=== PATIENT | female | born 1975 | race Caucasian/White ===

== ENCOUNTER 2020-06-25 14:00 | Outpatient (RCR) | payer OTHER, SELFPAY | END 2020-06-26 23:55 | disposition home or self-care (01) | LOC: HO.PAOS 14:00 | PROVIDERS: Visit Provider Counselor Mental Health | DX: F41.1 Generalized anxiety disorder (principal); F33.2 Major depressive disorder, recurrent severe without psychotic features; F60.9 Personality disorder, unspecified; Z63.4 Disappearance and death of family member | CPT/HCPCS: 90834 ==

== ENCOUNTER 2020-07-28 12:55 | Outpatient (REF) | payer OTHER, SELFPAY ==
[2020-07-28 14:15] LABS: Basophils Absolute Auto 0.1 X10*3/uL (0.0-0.2); Basophils Percent Auto 0.8 % (0-2); Eosinophils Absolute Auto 0.1 X10*3/uL (0.0-0.4); Eosinophils Percent Auto 1.9 % (0-4); Hematocrit 43.2 % (37-47); Hemoglobin 14.3 g/dl (12.0-16.0); Imm Gran Abs Auto 0.02 X10*3/uL (0.00-0.03); Imm Gran Pct Auto 0.3 % (0.0-0.4); Lymphocytes Absolute Auto 2.4 X10*3/uL (1.2-4.9); Lymphocytes Percent Auto 32.3 % (20-40); MANUAL DIFF FLAG NO; Mean Corpuscular HGB Conc 33.1 g/dl (31.0-35.0); Mean Corpuscular Hemoglobin 29.9 pg (27.0-33.0); Mean Corpuscular Volume 90.2 fL (80-98); Mean Platelet Volume 10.8 fL (9.4-12.3); Monocytes Absolute Auto 0.4 X10*3/uL (0.1-1.2); Monocytes Percent Auto 5.4 % (2-11); Neutrophils Absolute Auto 4.4 X10*3/uL (2.0-8.3); Neutrophils Percent Auto 59.3 % (45-73); Platelet Count 246 X10*3/uL (160-400); Red Blood Count 4.79 X10*6/uL (4.20-5.50); Red Cell Distribution Width 12.9 % (11.0-16.0); White Blood Count 7.5 X10*3/uL (4.8-10.8)
[2020-07-28 14:39] LABS: Estimated Average Glucose 100 mg/dL; Hemoglobin A1c % 5.1 %
[2020-07-28 14:51] LABS: Magnesium 2.2 mg/dL (1.6-2.6)
[2020-07-28 14:57] LABS: Alanine Aminotransferase 17 U/L (0-31); Albumin Level 4.3 g/dL (3.5-5.0); Alkaline Phosphatase 77 U/L (39-117); Anion Gap 12 (12-20); Aspartate Amino Transferase 18 U/L (5-31); Bilirubin Total 0.4 mg/dL (0.0-1.0); Blood Urea Nitrogen 7 mg/dL (9-16); Calcium 8.9 mg/dL (8.4-10.2); Carbon Dioxide 24 mmol/L (22-29); Chloride 107 mmol/L (96-108); Cholesterol 159 mg/dL; Estimated Glomerular Filt Rate > 60; Glucose Random 88 mg/dL (60-115); HDL Cholesterol 41 mg/dL; LDL Cholesterol Calculated 92 mg/dl; Potassium 4.1 mmol/l (3.3-5.1); Sodium 139 mmol/L (135-145); Total Protein 7.3 g/dL (6.5-8.0); Triglycerides 131 mg/dL
[2020-07-28 15:11] LABS: Ferritin 146 ng/mL (10-250); Free T4 (Free Thyroxine) 0.97 ng/dL (0.71-1.85); Thyroid Stimulating Hormone 2.81 uIU/mL (0.32-4.0)
[2020-07-28 15:37] LABS: Folate > 20.0 ng/mL (> or = 4.0); Vitamin B12 > 2000 pg/mL (200-900)
[2020-07-28 18:20] LABS: Lithium 0.45 mmol/L (0.60-1.20)
== END 2020-07-28 12:56 | disposition home or self-care (01) ==
LOC: HO.LAB 12:55
PROVIDERS: PCP Internal Medicine; Visit Provider Clinical Nurse Specialist Psychiatric/Mental Health, Adult
DX: F33.2 Major depressive disorder, recurrent severe without psychotic features (principal)
CPT/HCPCS: 36415; 80053; 80061; 80178; 82306; 82607; 82728; 82746; 83036; 83735; 84439; 84443; 85025

== ENCOUNTER 2021-02-17 11:13 | Outpatient (REF) | payer MEDICARE, MEDICAID, SELFPAY ==
[2021-02-17 12:16] LABS: MANUAL DIFF FLAG NO
[2021-02-17 12:22] LABS: Basophils Absolute Auto 0.1 X10*3/uL (0.0-0.2); Basophils Percent Auto 0.7 % (0-2); Eosinophils Absolute Auto 0.1 X10*3/uL (0.0-0.4); Eosinophils Percent Auto 1.3 % (0-4); Hematocrit 43.4 % (37-47); Hemoglobin 14.2 g/dl (12.0-16.0); Imm Gran Abs Auto 0.02 X10*3/uL (0.00-0.03); Imm Gran Pct Auto 0.2 % (0.0-0.4); Lymphocytes Absolute Auto 2.4 X10*3/uL (1.2-4.9); Lymphocytes Percent Auto 28.9 % (20-40); Mean Corpuscular HGB Conc 32.7 g/dl (31.0-35.0); Mean Corpuscular Hemoglobin 29.2 pg (27.0-33.0); Mean Corpuscular Volume 89.1 fL (80-98); Mean Platelet Volume 10.5 fL (9.4-12.3); Monocytes Absolute Auto 0.5 X10*3/uL (0.1-1.2); Monocytes Percent Auto 6.5 % (2-11); Neutrophils Absolute Auto 5.2 X10*3/uL (2.0-8.3); Neutrophils Percent Auto 62.4 % (45-73); Platelet Count 297 X10*3/uL (160-400); Red Blood Count 4.87 X10*6/uL (4.20-5.50); Red Cell Distribution Width 13.2 % (11.0-16.0); White Blood Count 8.3 X10*3/uL (4.8-10.8)
[2021-02-17 12:31] LABS: Lithium 0.55 mmol/L (0.60-1.20)
[2021-02-17 12:36] LABS: Estimated Average Glucose 100 mg/dL; Hemoglobin A1c % 5.1 %
[2021-02-17 12:39] LABS: Anion Gap 11 (12-20); Blood Urea Nitrogen 9 mg/dL (9-16); Carbon Dioxide 24 mmol/L (22-29); Chloride 107 mmol/L (96-108); Cholesterol 151 mg/dL; Estimated Glomerular Filt Rate 51; Glucose Fasting 106 mg/dL (60-99); HDL Cholesterol 34 mg/dL; LDL Cholesterol Calculated 91 mg/dl; Potassium 4.2 mmol/L (3.3-5.1); Sodium 138 mmol/L (135-145); Triglycerides 130 mg/dL
[2021-02-17 13:01] LABS: Thyroid Stimulating Hormone 1.29 uIU/mL (0.32-4.0)
[2021-02-19 11:37] LABS: Calcium, Ionized 5.1 mg/dL (4.8-5.6)
== END 2021-02-17 11:14 | disposition home or self-care (01) ==
LOC: HO.LAB 11:13
PROVIDERS: Visit Provider Clinical Nurse Specialist Psychiatric/Mental Health, Child & Adolescent
DX: R79.89 Other specified abnormal findings of blood chemistry (principal); F60.3 Borderline personality disorder; Z79.899 Other long term (current) drug therapy
CPT/HCPCS: 36415; 80048; 80061; 80178; 82330; 83036; 84443; 85025

== ENCOUNTER 2025-02-16 14:59 | Inpatient (IN) | payer MEDICARE, MEDICAID, SELFPAY ==
--- NOTE | 2025-02-16 | ECG_ITS ---
Test Reason : DRUG OD PROTOCOL Blood Pressure : */* mmHG Vent. Rate : 91 BPM Atrial Rate : 91 BPM P-R Int : 182 ms QRS Dur : 78 ms QT Int : 382 ms P-R-T Axes : 59 35 48 degrees QTcB Int : 469 ms Normal sinus rhythm Normal ECG When compared with ECG of 16-Feb-2025 19:50, Nonspecific T wave abnormality, improved in Anterolateral leads Referred By: Mara Calderón Electronically Signed By: JYOTI ARECHIGA MD
--- NOTE | ~2025-02-16 | XR_ITS ---
CLINICAL HISTORY: found down, aspiration 1 view chest x-ray Comparison: None provided Findings: No consolidation or effusion. Normal size heart. Postoperative changes of the cervical spine IMPRESSION: 1. No acute findings. This document has been electronically signed by: Juan M Ordonez DO on 02/16/2025 21:41:15
[2025-02-16 15:08] VITALS: BP 105/76; BP 112/63; PULSE 94; PULSE 98; RESP 11; O2SAT 100; O2SAT 99; BMI 24.2
--- NOTE | 2025-02-16 15:25 | ECG_ITS ---
Test Reason : OD Blood Pressure : */* mmHG Vent. Rate : 94 BPM Atrial Rate : 94 BPM P-R Int : 188 ms QRS Dur : 80 ms QT Int : 382 ms P-R-T Axes : 62 49 49 degrees QTcB Int : 477 ms Normal sinus rhythm Nonspecific T wave abnormality Prolonged QT Abnormal ECG When compared with ECG of 29-Jun-2018 15:03, QT has lengthened Referred By: Mara Calderón Electronically Signed By: JYOTI ARECHIGA MD
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
[2025-02-16 15:58] LABS: Hematocrit 32.8 % (37.0-47.0); Hemoglobin 11.1 g/dl (12.0-16.0); Imm Gran Abs Auto 0.04 X10*3/uL (0.00-0.03); Imm Gran Pct Auto 0.4 % (0.0-0.4); Lymphocytes Absolute Auto 0.7 X10*3/uL (1.2-4.9); MANUAL DIFF FLAG NO; Mean Corpuscular HGB Conc 33.8 g/dl (31.0-35.0); Mean Corpuscular Hemoglobin 30.2 pg (27.0-33.0); Mean Corpuscular Volume 89.4 fL (80.0-98.0); NRBC Abs Auto 0.000 X10*3/uL (0.0-0.012); NRBC Pct Auto 0.0 /100WBC (0.0-0.2); Platelet Count 206 X10*3/uL (160-400); Red Blood Count 3.67 X10*6/uL (4.20-5.50); White Blood Count 10.3 X10*3/uL (4.8-10.8)
[2025-02-16 16:00] VITALS: BP 125/78; PULSE 98; RESP 10; TEMP 36.9; O2SAT 99
[2025-02-16 16:02] LABS: VBG HCO3 23 mmol/L (22-26); VBG O2 % Saturation 91.0 %
[2025-02-16 16:04] LABS: Venous Blood Gas Refer to POC result
[2025-02-16 16:12] LABS: Alanine Aminotransferase 13 U/L (0-31); Albumin Level 3.4 g/dL (3.5-5.0); Alkaline Phosphatase 53 U/L (39-117); Anion Gap 11 (12-20); Aspartate Amino Transferase 20 U/L (5-31); Blood Urea Nitrogen 8 mg/dL (9-16); Calcium 8.3 mg/dL (8.4-10.2); Carbon Dioxide 23 mmol/L (22-29); Chloride 111 mmol/L (96-108); Creatinine Clr Calc Pharmacy 54.6; Estimated Glomerular Filt Rate 50; Magnesium 1.9 mg/dL (1.6-2.6); Potassium 3.7 mmol/L (3.3-5.1); Sodium 141 mmol/L (135-145); Total Protein 6.0 g/dL (6.5-8.0)
[2025-02-16 16:16] LABS: Acetaminophen LAB < 3 mcg/mL (<30); Salicylate < 5.0 mg/dL (15-30)
[2025-02-16 16:20] LABS: Troponin-I High Sensitivity < 2.7 ng/L (<3.5-17.0)
[2025-02-16 17:00] VITALS: BP 113/76; PULSE 104; RESP 12; O2SAT 100
--- NOTE | 2025-02-16 17:40 | ECG_ITS ---
Test Reason : SERIAL EKG FOR OD Blood Pressure : */* mmHG Vent. Rate : 103 BPM Atrial Rate : 103 BPM P-R Int : 178 ms QRS Dur : 80 ms QT Int : 340 ms P-R-T Axes : 60 45 46 degrees QTcB Int : 445 ms Sinus tachycardia Nonspecific T wave abnormality Abnormal ECG When compared with ECG of 16-Feb-2025 15:37, No significant change was found Referred By: Mara Calderón Electronically Signed By: JYTOI ARECHIGA MD
[2025-02-16 17:49] LABS: Glucose, Whole Blood 82 mg/dL (60-115)
[2025-02-16] MEDS: Potassium Chloride/H20 10 MEQ/100 ML PIGGYBACK 100 MEQ IV ×4 (18:16→23:34)
[2025-02-16 19:00] VITALS: BP 111/77; PULSE 99; RESP 13; O2SAT 100
--- NOTE | 2025-02-16 19:44 | ECG_ITS ---
Test Reason : serial EKG for OD Blood Pressure : */* mmHG Vent. Rate : 93 BPM Atrial Rate : 93 BPM P-R Int : 190 ms QRS Dur : 72 ms QT Int : 344 ms P-R-T Axes : 63 34 0 degrees QTcB Int : 427 ms Normal sinus rhythm Nonspecific T wave abnormality Abnormal ECG When compared with ECG of 16-Feb-2025 17:48, No significant change was found Referred By: Mara Calderón Electronically Signed By: JYOTI ARECHIGA MD
[2025-02-16 20:46] VITALS: BP 111/76; PULSE 99; RESP 10; O2SAT 100
[2025-02-16 20:49] LABS: Lithium 0.62 mmol/L (0.60-1.20)
[2025-02-16 20:55] LABS: Cannabinoid Screen Urine POSITIVE (Not Detect)
[2025-02-16 22:12] VITALS: BP 111/73; PULSE 104; RESP 14; O2SAT 94
--- NOTE | 2025-02-16 23:35 | PC.NURSE ---
assumed care of pt @2300, pt A+Ox3, pt third bag of K completed and 4th bag hung at this time, EKG being performed by tech, pt appeared to be agitated but easily redirectable and able to follow commands
[2025-02-16 23:45] LABS: Glucose, Whole Blood 71 mg/dL (60-115)
--- NOTE | 2025-02-16 23:46 | PC.NURSE ---
lithium blood work drawn and sent to lab at this time
[2025-02-16 23:58] LABS: Lithium 0.56 mmol/L (0.60-1.20)
--- NOTE | 2025-02-17 00:39 | PC.NURSE ---
4th bag of K infused at this time. pt restless in bed, redirectable, responsive to verbal stimuli
[2025-02-17 00:40] VITALS: BP 122/83; PULSE 87; RESP 14; TEMP 36.6; O2SAT 100
[2025-02-17 02:14] VITALS: BP 124/72; PULSE 93; RESP 12; O2SAT 99
--- NOTE | 2025-02-17 03:19 | PC.NURSE ---
pt increasigly agitated, sitter attempting to redirect the pt and pt uncooperative, RN and provider Urmila Cedillo at the bedside attempting to redirect the pt, pt states she needs to use the bathroom, pt walked to the bathroom via x2 assist by RN and deburring technician
--- NOTE | 2025-02-17 03:36 | PC.NURSE ---
pt returned to room and laying in stretcher, sitter at the bedside, no apparent distress or agitation at this time.
[2025-02-17 04:56] VITALS: BP 131/64; PULSE 85; RESP 15; TEMP 36.6; O2SAT 100
--- NOTE | 2025-02-17 05:29 | PC.NURSE ---
at this time this RN spoke with Ro from poison control, updating on the pt.
[2025-02-17 06:29] VITALS: BP 111/76; PULSE 87; RESP 17; TEMP 36.3; O2SAT 100
--- NOTE | 2025-02-17 07:58 | PC.NURSE ---
Pt walked to the [facility] with BLANCO munson and jayant
[2025-02-17 08:00] VITALS: BP 109/68; PULSE 90; RESP 22; O2SAT 99
--- NOTE | 2025-02-17 13:28 | MHC.EDTECH ---
Patient moved from [facility] to [facility] chairs [facility] - patient upset at this tech stating he will call his soft crab shedder and meri you, and that his insurance paid for that room. This tech apologized for the inconvenience. Patient resting in chairs at [facility].
[2025-02-17 18:29] VITALS: BP 114/82; PULSE 92; RESP 18; TEMP 36.6; O2SAT 100
[2025-02-18 06:27] VITALS: BP 115/79; PULSE 100; RESP 18; TEMP 36.8; O2SAT 100
--- NOTE | 2025-02-18 09:57 | PC.NURSE ---
Pt up oob ambulating with steady gait. Using phone- pt agitated/irritable stating I want to leave I am in dirty clothes, I haven't even showered. Pt redirected on ability to shower and offered supplies/clean linens- pt refused. rodriguez aware of pt increasing agitation. Med rec done by this RN, confirmed with pharmacy. Home meds ordered- pending verification by pharmacy. All needs met at this time.
--- NOTE | 2025-02-18 11:52 | PHA.MEDREC ---
Addendum entered by Don Obrien, Julian 02/18/25 12:07: reviewed Original Note: Pharmacy Consult ? Medication Reconciliation Pharmacy reviewed med rec done by nursing. Spoke with pt and per pt she takes: the Emsam patches once daily and states she had one on no but has not changed it in about 1 week, Levothyroxine 100mcg once daily (nurse had confirmed 88mcg), Quetiapine 200mg tabs; pt now stating she takes it 1 1/2 tab (300mg) at bedtime, a Vitamin B Complex tab with no Vitamin C/Folic acid added; pt stated the Vitamin C makes her pee too much (nurse had confirmed the Vitamin B Complex W/H Vitamin/Folic acid). Pt states she thinks she last took her medications morning but is not 100% sure at this time.
--- NOTE | 2025-02-18 12:20 | PC.NURSE ---
Per pt- ok to give Signficant other Onofre and Mom information over phone.
[2025-02-18 17:57] VITALS: BP 121/78; PULSE 83; RESP 18; TEMP 36.7; O2SAT 99
[2025-02-18 17:58] VITALS: BMI 19.5
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
[2025-02-18] MEDS: Magnesium Hydrox/Alum Hydrox 30 ML ORAL.SUSP PO (19:02)
--- NOTE | 2025-02-19 06:05 | HO.PSYADMNOT ---
HPI Date of Service: 02/19/25 Chief Complaint: Depressed/SI Sources of Information: patient interviewed, chart reviewed and crisis/core team assessment reviewed Additional Sources of Information: Seen 1030am HPI Subjective Notes: Lin Warning, Conditional Voluntary and 3 Day Healthcare Proxy: No Guardianship: No Medical Problems Affecting Mental Status: No Narrative: 49 yo female, history of bipolar disorder, PTSD, substance use to ER 02/16 via EMS. Mother called 911 due to suspected OD of klonopin. She arrived heavily intoxicated. Toxicology positive for cocaine, benzodiazepines, cannabis. [place] level was low. Family report to CARE team pt was stable until approx 1 year ago when she became obsessed with her appearance. She lost over 100 lbs and began running for exercise. 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 Mother also reports pt has been overtaking Klonopin. Pt admits to overtaking klonopin in the ER, however today she reports what she took was Seroquel. In meeting with pt on 02/18 and today, she reports discord with partner of several years (they have been dating since she was age 10). After her weight loss she reports getting attention from men as she never had before and having a brief relationship with a community resource officer. Former partner has been volitile about this-precipitating threats, arguments and a restraining order from pt and her new dating interest. Recently the new relationship ended and former partner and pt reconciled-he offered to find her a plaster machine operator to have a relationship with, however he could not manage this and both were argumentative again, having volitile arguments. They recently went to the [facility] in [place] where pt did use cocaine x 1 and the arguments continued. Pt reports she took extra meds to rest, she believes she took #20 200 mg Seroquel, however, had minimal reaction so she is unsure. I don't want to , I am having enjoyment in life like I have never had for the first time. Past Psychiatric History: [place] [facility] in her 20's, most recent IP [facility] 2021 s/p OD OP: Arabella Hernandes Psychiatrist: Dr. Mendoza [phone] Hx of anorexia Hx ECT, TMS, Ketamine Mental health hx and sx since her 20's, severe anxiety in childhood in relation to attending school History of impulsive behaviors, multiple overdoses Medical Evaluation Reviewed: Yes [facility] Medical History (Updated 02/19/25 @ 18:37 by Idania Escobar APRN) PTSD (post-traumatic stress disorder) Cocaine abuse Bipolar disorder Family History: Denies Social History: Born in [place], raised in [place] by both parents. She is an only child. She graduated high school and attended college. for 11 years, , no children. Currently on SSDI Substance History: cannabis daily, edibles daily cocaine x 1 recently at the [facility] Trauma History: no, however, pt's father a difficult when covid first started and she observed this. Their relationship was close but difficult. Diagnostics Vital Signs (24Hr): Vital Signs - 24 hr 02/18/25 06:27 02/18/25 17:57 Temperature 98.2 F 98.1 F Pulse Rate 100 83 Respiratory Rate 18 18 Blood Pressure 115/79 121/78 Pulse Oximetry 100 99 Oxygen Delivery Method Room Air Room Air BMI result Body Mass Index 19.5 Labs 02/19/25 07:46 02/19/25 07:46 Labs: FT4 0.59 (0.71-1.85) TSH 5.05 (0.32-4) Li 0.56 Meds/Allergies Meds Home Medications ?Medication ?Instructions ?Recorded ?Confirmed ?Type omeprazole 40 mg capsule,delayed 1 cap PO DAILY@0630 1030/20 02/18/25 History release docusate sodium 100 mg capsule 100 mg PO BID PRN Constipation 02/18/25 02/18/25 History levothyroxine 100 mcg tablet 100 mcg PO DAILY@0600 02/18/25 02/18/25 History linaclotide 290 mcg capsule 290 mcg PO DAILY 02/18/25 02/18/25 History (Linzess) polyethylene glycol 3350 17 34 g PO DAILY PRN Constipation 02/18/25 02/18/25 History gram/dose oral powder (Miralax) quetiapine 200 mg tablet 300 mg PO BEDTIME 02/18/25 02/18/25 History vitamin B complex 1 cap PO DAILY 02/18/25 02/18/25 History Allergies Allergies Allergy/AdvReac Type Severity Reaction Status Date / Time No Known Allergies (No Known Allergy Unverified 02/16/25 15:13 Allergies*) Mental Status Exam Mental Status Exam Patient Appearance: Appropriate Patient Orientation: Person, Place, Time and Situation Level of Consciousness: Alert Patient Behavior: Talkative Mood Description: Apprehensive Affect Description: Apprehensive Patient Cognition Impaired: No Ability to Follow Directions: Good Speech Pattern: Spontaneous Speech Memory Description: Episodic Impaired Hallucinations: None Delusions: Not Present Thought Process: Distracted Thought Content: positive for Circumstantial and positive for Perseveration Depressive Symptoms: Thoughts of /Suicide (denies) Judgement: Fair Assessment & Plan Assessment & Plan (1) Bipolar disorder: Status: Acute Code(s): F31.9 - Bipolar disorder, unspecified (2) Cocaine abuse: Status: Acute Code(s): F14.10 - Cocaine abuse, uncomplicated (3) PTSD (post-traumatic stress disorder): Status: Acute Code(s): F43.10 - Post-traumatic stress disorder, unspecified Plan Admit, CV, 15 minute checks, TDN signed Re-establish regime Collateral Contact Encourage full milieu Diagnostics as needed Patient educated on: medication risk/benefits and therapeutic strategies Informed Consent: understands Reason for continued inpatient stay Substantial Risk for: rapid decompensation Statement Statement: I have reviewed the history and physical and performed a pertinent examination on my patient. No changes have occurred unless specified. If the History and Physical was not performed prior to admission, the Hospitalist's service will be consulted for completing the admission physical. Time Spent With Patient Time: Total time managing care of this patient today ____ minutes.
[2025-02-19 07:50] VITALS: BP 120/83; PULSE 77; RESP 17; TEMP 36.6; O2SAT 96
[2025-02-19 08:02] LABS: MANUAL DIFF FLAG NO
[2025-02-19 08:04] LABS: Hematocrit 42.2 % (37.0-47.0); Hemoglobin 14.2 g/dl (12.0-16.0); Imm Gran Abs Auto 0.02 X10*3/uL (0.00-0.03); Imm Gran Pct Auto 0.2 % (0.0-0.4); Lymphocytes Absolute Auto 2.0 X10*3/uL (1.2-4.9); Mean Corpuscular HGB Conc 33.6 g/dl (31.0-35.0); Mean Corpuscular Hemoglobin 30.0 pg (27.0-33.0); Mean Corpuscular Volume 89.0 fL (80.0-98.0); NRBC Abs Auto 0.000 X10*3/uL (0.0-0.012); NRBC Pct Auto 0.0 /100WBC (0.0-0.2); Platelet Count 293 X10*3/uL (160-400); Red Blood Count 4.74 X10*6/uL (4.20-5.50); White Blood Count 8.9 X10*3/uL (4.8-10.8)
[2025-02-19 08:15] LABS: Hemoglobin A1C 111.2734 umol/L; Total Hemoglobin (HGBA1C) 3750.7428 umol/L
[2025-02-19 08:29] LABS: Alanine Aminotransferase 14 U/L (0-31); Albumin Level 4.4 g/dL (3.5-5.0); Alkaline Phosphatase 67 U/L (39-117); Anion Gap 8 (12-20); Aspartate Amino Transferase 22 U/L (5-31); Blood Urea Nitrogen 11 mg/dL (9-16); Calcium 9.2 mg/dL (8.4-10.2); Carbon Dioxide 28 mmol/L (22-29); Chloride 108 mmol/L (96-108); Cholesterol 170 mg/dL (<200); Creatinine Clr Calc Pharmacy 60.4; Estimated Glomerular Filt Rate > 60; HDL Cholesterol 72 mg/dL (>40); Potassium 4.1 mmol/L (3.3-5.1); Sodium 140 mmol/L (135-145); Total Protein 7.7 g/dL (6.5-8.0); Triglycerides 88 mg/dL (<150)
[2025-02-19 10:00] LABS: Free T4 (Free Thyroxine) 0.59 ng/dL (0.71-1.85)
[2025-02-19 20:00] VITALS: BP 131/82; PULSE 86; TEMP 36.8; O2SAT 98
[2025-02-20 08:00] VITALS: BP 99/68; PULSE 84; TEMP 36.1; O2SAT 99
--- NOTE | 2025-02-20 12:36 | HE.PHANOTE ---
RE: PT OWN EMSAM PATCHES Med was filled by [facility] Outpatient pharmacy and director of pharmacy Alexia brought up 30 patches and put in pt specific bin on 02/20/25 @[id number].
[2025-02-20] MEDS: SELEGILINE 6 MG/24 HR 1 EACH TOPICAL ×2 (12:44→12:47)
--- NOTE | 2025-02-20 13:54 | HO.PSYCHPN ---
Subjective Subjective Date of Service: 02/20/25 Reason For Visit: Depressed/SI Subjective Notes: Conditional Voluntary Medical Problems Affecting Mental Status: No Interim History: Patient reports constipation and notes that she has not been able to move her bowels for the past 5 days. Since history of severe constipation and has been on Linzess for the past year but does not want to take the medication here due to severe diarrhea on the medication. She is not taking p.r.n. medications here for constipation. She notes that she has not been hydrating well and has not been ambulating much. She denies anxiety and depression. She denies SI/HI/AH/VH. She is ready for discharge tomorrow. Medication Compliance: Intermittent Side effects from medications: No Attending Groups: Intermittent Review of Systems Acute medical concerns: Yes GI: Reports constipation and severe suprapubic pain Mental Status Exam Mental Status Exam Narrative: Appearance: Casually dressed, adequate hygiene Behavior: Calm and cooperative throughout the interview. Eye contact is appropriate, and there are no signs of psychomotor agitation or retardation Speech: Normal volume and prosody Thought process: Logical and goal-directed Thought content: Future oriented no self-harming thoughts Mood: Euthymic Affect: Full, mood-congruent SI:denies HI:denies VH/AH:none Delusions: None Insight/judgment: Fair insight and judgment Memory/cog: Alert, oriented x 4. grossly intact to conversational testing Diagnostics Vital Signs (24Hr): Vital Signs - 24 hr 02/19/25 20:00 02/20/25 08:00 Temperature 98.3 F 97.0 F Pulse Rate 86 84 Blood Pressure 131/82 99/68 Pulse Oximetry 98 99 Oxygen Delivery Method Room Air Room Air BMI result Body Mass Index 19.5 Labs 02/19/25 07:46 02/19/25 07:46 Labs: Laboratory Results - last 48 hr 02/19/25 07:46 WBC 8.9 RBC 4.74 D Hgb 14.2 D Hct 42.2 D MCV 89.0 MCH 30.0 MCHC 33.6 RDW 13.0 Plt Count 293 D MPV 9.4 Immature Gran % (Auto) 0.2 Neut % (Auto) 68.5 Lymph % (Auto) 22.3 [place] % (Auto) 6.2 Eos % (Auto) 2.1 Baso % (Auto) 0.7 Lymph # (Auto) 2.0 [place] # (Auto) 0.6 Eos # (Auto) 0.2 Baso # (Auto) 0.1 Abs Immat Gran (auto) 0.02 Absolute Neuts (auto) 6.1 Absolute Nucleated RBC 0.000 Nucleated RBC % (auto) 0.0 Sodium 140 Potassium 4.1 Chloride 108 Carbon Dioxide 28 Anion Gap 8 L BUN 11 Creatinine 0.95 Estim Creat Clear Calc 60.4 Estimated GFR > 60 Random Glucose 98 Estimat Average Glucose 94 Hemoglobin A1c % 4.9 Calcium 9.2 D Total Bilirubin 0.3 AST 22 ALT 14 Alkaline Phosphatase 67 Total Protein 7.7 Albumin 4.4 Triglycerides 88 Cholesterol 170 LDL Cholesterol, Calc 81 HDL Cholesterol 72 TSH 5.05 H Free T4 0.59 L Medications Medications Current Medications Acetaminophen (Acetaminophen 325 Mg Tablet) 650 mg PO Q6H PRN PRN Reason: Headache/Pain, Scale 1-10 Al Hydroxide/Mg Hydroxide (Magnesium Hydrox/Alum Hydrox 30 Ml Oral.Susp) 30 ml PO Q6H PRN PRN Reason: Heartburn/Nausea Last Admin: 02/18/25 19:02 Dose: 30 ml Clonazepam (Clonazepam 1 Mg Tablet) 1 mg PO BID [facility] Last Admin: 02/20/25 09:13 Dose: 1 mg Folic Acid (Folic Acid 1 Mg Tablet) 1 mg PO DAILY [facility] Last Admin: 02/20/25 09:10 Dose: 1 mg Hydroxyzine HCl (Hydroxyzine Hcl 25 Mg Tablet) 25 mg PO Q6H PRN PRN Reason: mild anxiety Levothyroxine Sodium (Levothyroxine Sodium 88 Mcg Tablet) 88 mcg PO DAILY [facility] Last Admin: 02/20/25 09:10 Dose: 88 mcg [place] Carbonate ([place] Carbonate Er 300 Mg Tablet.Er) 300 mg PO BID [facility] Last Admin: 02/20/25 09:11 Dose: 300 mg Magnesium Hydroxide (Milk Of Magnesia 30 Ml Oral.Susp) 30 ml PO DAILY PRN PRN Reason: Constipation Multivitamins/Vitamin C (Multivitamin Tablet) 1 tab PO DAILY [facility] Last Admin: 02/20/25 09:10 Dose: 1 tab Nicotine (Nicotine 21 Mg Patch.Td24) 21 mg TRANSDERMA DAILY PRN PRN Reason: smoking cessation Nicotine Polacrilex (Nicotine Polacrilex 2 Mg Gum) 4 mg BUCCAL Q2H PRN PRN Reason: Nicotine Cravings Pt Own (Selegiline [ Emsam] 6 Mg/24 Hr Patch 24 Hour) 1 patch TOPICAL DAILY [facility] Last Admin: 02/20/25 12:47 Dose: 1 patch Olanzapine (Olanzapine 5 Mg Tablet) 5 mg PO TID PRN PRN Reason: agitation Omeprazole (Omeprazole 40 Mg Capsule.) 40 mg PO DAILY [facility] Last Admin: 02/20/25 09:10 Dose: 40 mg Quetiapine Fumarate (Quetiapine Fumarate 300 Mg Tablet) 300 mg PO BEDTIME [facility] Last Admin: 02/19/25 21:07 Dose: 300 mg Allergies Allergies Allergy/AdvReac Type Severity Reaction Status Date / Time No Known Allergies (No Known Allergy Unverified 02/16/25 15:13 Allergies*) Assessment & Plan Assessment & Plan (1) Bipolar disorder: Status: Acute Code(s): F31.9 - Bipolar disorder, unspecified (2) Cocaine abuse: Status: Acute Code(s): F14.10 - Cocaine abuse, uncomplicated (3) PTSD (post-traumatic stress disorder): Status: Acute Code(s): F43.10 - Post-traumatic stress disorder, unspecified Plan Admit, CV, 15 minute checks, TDN signed Re-establish regime Collateral Contact Encourage full milieu Diagnostics as needed 02/20: Patient reports constipation and notes that she has not been able to move her bowels for the past 5 days. Since history of severe constipation and has been on Linzess for the past year but does not want to take the medication here due to severe diarrhea on the medication. She is not taking p.r.n. medications here for constipation. She notes that she has not been hydrating well. She denies anxiety and depression. She denies SI/HI/AH/VH. She is ready for discharge tomorrow. Continue current treatment regimen. Encouraged to take p.r.n. medications for constipation. Adequate hydration infrequent ambulation encouraged to soften stool and promote defecation. DC on 02/21/25. Patient educated on: therapeutic strategies Reason for continued inpatient stay Substantial Risk for: rapid decompensation Time Spent With Patient Time: Total time managing care of this patient today ____ minutes.
[2025-02-20] MEDS: Milk of Magnesia 30 ML ORAL.SUSP PO (14:39)
[2025-02-20 20:00] VITALS: BP 141/81; PULSE 85; RESP 16; TEMP 36.4; O2SAT 99
--- NOTE | 2025-02-21 10:21 | P.PNPSI_ITS ---
Subjective Subjective Reason For Visit: Depressed/SI Diagnostics Vital Signs (24Hr): Vital Signs - 24 hr 02/20/25 20:00 Temperature 97.6 F Pulse Rate 85 Respiratory Rate 16 Blood Pressure 141/81 H Pulse Oximetry 99 Oxygen Delivery Method Room Air BMI result Body Mass Index 19.5 Labs 02/19/25 07:46 02/19/25 07:46 Medications Medications Current Medications Acetaminophen (Acetaminophen 325 Mg Tablet) 650 mg PO Q6H PRN PRN Reason: Headache/Pain, Scale 1-10 Al Hydroxide/Mg Hydroxide (Magnesium Hydrox/Alum Hydrox 30 Ml Oral.Susp) 30 ml PO Q6H PRN PRN Reason: Heartburn/Nausea Last Admin: 02/18/25 19:02 Dose: 30 ml Clonazepam (Clonazepam 1 Mg Tablet) 1 mg PO BID [facility] Last Admin: 02/21/25 08:27 Dose: 1 mg Folic Acid (Folic Acid 1 Mg Tablet) 1 mg PO DAILY [facility] Last Admin: 02/21/25 08:28 Dose: 1 mg Hydroxyzine HCl (Hydroxyzine Hcl 25 Mg Tablet) 25 mg PO Q6H PRN PRN Reason: mild anxiety Levothyroxine Sodium (Levothyroxine Sodium 88 Mcg Tablet) 88 mcg PO DAILY [facility] Last Admin: 02/21/25 08:28 Dose: 88 mcg [place] Carbonate ([place] Carbonate Er 300 Mg Tablet.Er) 300 mg PO BID [facility] Last Admin: 02/21/25 08:27 Dose: 300 mg Magnesium Hydroxide (Milk Of Magnesia 30 Ml Oral.Susp) 30 ml PO DAILY PRN PRN Reason: Constipation Last Admin: 02/20/25 14:39 Dose: 30 ml Multivitamins/Vitamin C (Multivitamin Tablet) 1 tab PO DAILY [facility] Last Admin: 02/21/25 08:28 Dose: 1 tab Nicotine (Nicotine 21 Mg Patch.Td24) 21 mg TRANSDERMA DAILY PRN PRN Reason: smoking cessation Nicotine Polacrilex (Nicotine Polacrilex 2 Mg Gum) 4 mg BUCCAL Q2H PRN PRN Reason: Nicotine Cravings Pt Own (Selegiline [ Emsam] 6 Mg/24 Hr Patch 24 Hour) 1 patch TOPICAL DAILY [facility] Last Admin: 02/21/25 08:29 Dose: Not Given Olanzapine (Olanzapine 5 Mg Tablet) 5 mg PO TID PRN PRN Reason: agitation Omeprazole (Omeprazole 40 Mg Capsule.Dr) 40 mg PO DAILY [facility] Last Admin: 02/21/25 08:27 Dose: 40 mg Quetiapine Fumarate (Quetiapine Fumarate 300 Mg Tablet) 300 mg PO BEDTIME [facility] Last Admin: 02/20/25 21:10 Dose: 300 mg Allergies Allergies Allergy/AdvReac Type Severity Reaction Status Date / Time No Known Allergies (No Known Allergy Unverified 02/16/25 15:13 Allergies*) Assessment & Plan Assessment & Plan (1) Bipolar disorder: Status: Acute Code(s): F31.9 - Bipolar disorder, unspecified (2) Cocaine abuse: Status: Acute Code(s): F14.10 - Cocaine abuse, uncomplicated (3) PTSD (post-traumatic stress disorder): Status: Acute Code(s): F43.10 - Post-traumatic stress disorder, unspecified Plan Admit, CV, 15 minute checks, TDN signed Re-establish regime Collateral Contact Encourage full milieu Diagnostics as needed 02/20: Patient reports constipation and notes that she has not been able to move her bowels for the past 5 days. Since history of severe constipation and has been on Linzess for the past year but does not want to take the medication here due to severe diarrhea on the medication. She is not taking p.r.n. medications here for constipation. She notes that she has not been hydrating well. She denies anxiety and depression. She denies SI/HI/AH/VH. She is ready for discharge tomorrow. Continue current treatment regimen. Encouraged to take p.r.n. medications for constipation. Adequate hydration infrequent ambulation encouraged to soften stool and promote defecation. DC on 02/21/25. Time Spent With Patient Time: Total time managing care of this patient today ____ minutes.
--- NOTE | 2025-03-04 02:00 | PM.PSYDC ---
DS: Providers Provider Date of Service: 02/21/25 Date of admission: 02/18/25 14:51 Date of discharge: 02/21/25 Primary care physician: Unknown Physician Admitting clinician: Idania Escobar Attending physician on admission: Josue Sloan Attending physician on discharge: Josue Sloan Discharging clinician: Idania Escobar DS: Diagnosis Discharge Diagnosis (1) Bipolar disorder: Status: Acute (2) Cocaine abuse: Status: Acute (3) PTSD (post-traumatic stress disorder): Status: Acute DS: Medications Discharge Medications Home Medications: Home Medications ?Medication ?Instructions ?Recorded ?Confirmed docusate sodium 100 mg capsule 100 mg PO BID PRN Constipation 02/18/25 02/18/25 linaclotide 290 mcg capsule 290 mcg PO DAILY 02/18/25 02/18/25 (Linzess) polyethylene glycol 3350 17 34 g PO DAILY PRN Constipation 02/18/25 02/18/25 gram/dose oral powder (Miralax) vitamin B complex 1 cap PO DAILY 02/18/25 02/18/25 Previous Rx's ?Medication ?Instructions ?Recorded clonazepam 1 mg tablet 1 tab PO BID #60 tabs 07/24/20 selegiline 6 mg/24 hr transdermal 1 patch topical DAILY #30 ea 02/19/25 24 hour patch (Emsam) folic acid 1 mg tablet 1 tab PO DAILY #30 tabs 02/21/25 levothyroxine 100 mcg capsule 100 mcg PO DAILY #30 caps 02/21/25 lithium carbonate 300 mg 300 mg PO BID #60 tabs 02/21/25 tablet,extended release multivitamin (Daily-Haley tablet) 1 tab PO DAILY #30 tabs 02/21/25 omeprazole 40 mg capsule,delayed 1 cap PO DAILY@0630 #30 caps 02/21/25 release quetiapine 200 mg tablet 300 mg (1.5 x 200 mg) PO BEDTIME 02/21/25 #30 tabs selegiline 6 mg/24 hr transdermal 1 patch topical DAILY #30 ea 02/21/25 24 hour patch Mental Status Exam Mental Status Exam Patient Appearance: Appropriate Patient Orientation: Person, Place, Time and Situation Level of Consciousness: Alert Patient Behavior: Talkative Mood Description: Apprehensive Affect Description: Apprehensive Patient Cognition Impaired: No Ability to Follow Directions: Good Speech Pattern: Spontaneous Speech Memory Description: Episodic Impaired Hallucinations: None Delusions: Not Present Thought Process: Distracted Thought Content: positive for Circumstantial and positive for Perseveration Depressive Symptoms: Thoughts of /Suicide (denies) Judgement: Fair DS: Summary Hospital Course Hospital Course: Admission to adult psychiatry for exacerbation of Bipolar Disorder, PTSD. Pt with a year long hx of anorexia with over a 100lb weight loss. To ER with EMS s/p intoxication and family concern regarding overdose. Pt reports taking extra klonopin, however, took extra seroquel to help with her sleep which was not a suicide attempt she reports. Toxicology positive for cannabis, benzodiazepines, cocaine. [place] level was low on admission. Pt signed a three day notice upon admit. Medications were evaluated and re-established. Pt was offered full milieu to assist in strengthening coping skills and to assist with management of relationship conflicts. Contact was made with her out patient psychiatrist who will meet with her this week post discharge. Pt was offered ongoing [facility], referral to [facility] for ongoing eating disorder treatment, however she declined these suggestions. She will call/return as needed. Her out pt psychiatrist is aware of these offers as well. Status at Discharge Functional status at discharge: independent ambulation Overall status at discharge: patient is progressing back to baseline Time Spent with Patient Time attestation: Total time managing care of this patient today ____ minutes. Time spent: Less than 30 minutes Discharge Plan Discharge Anticipated Discharge Date/Time: 02/21/25 12:00 Patient Disposition: Home, Self-Care Discharge Diagnosis: PTSD, bipolar disorder, cocaine abuse Referrals: [facility] Psychiatry: Dr. Mendoza [Other] - 02/22/25 9:40 am Referral Note: Hospital discharge appointment in person at [facility]: Arabella Hernandes [Other] - 02/27/25 2:00 pm Referral Note: Hospital discharge appointment Appointment is in person at [facility] in [place], [place]. [facility]: Partial Hospitalization Program [Other] - 1 Week Referral Note: Partial Hospitalization Program Information Patient can self-refer or seek support from outpatient providers to place referral for PHP program. Physician,Unknown J [Primary Care Provider, Medical] - 1 Week Discharge Medications: New multivitamin [Daily-Haley] Tablet 1 tab PO DAILY Qty: 30 0RF selegiline 6 mg/24 hr Patch 24 Hour 1 patch topical DAILY Qty: 30 0RF levothyroxine 100 mcg capsule 100 mcg PO DAILY Qty: 30 0RF Continued clonazepam 1 mg tablet 1 tab PO BID Qty: 60 1RF docusate sodium 100 mg capsule 100 mg PO BID PRN (Reason: Constipation) polyethylene glycol 3350 [Miralax] 17 gram/dose Powder 34 g PO DAILY PRN (Reason: Constipation) vitamin B complex Capsule 1 cap PO DAILY Linzess 290 mcg capsule 290 mcg PO DAILY Emsam 6 mg/24 hr patch 24 hour 1 patch topical DAILY Qty: 30 1RF quetiapine 200 mg tablet 300 mg PO BEDTIME Qty: 30 0RF lithium carbonate 300 mg tablet extended release 300 mg PO BID Qty: 60 0RF omeprazole 40 mg capsule,delayed release(DR/EC) 1 cap PO DAILY@0630 Qty: 30 0RF folic acid 1 mg tablet 1 tab PO DAILY Qty: 30 1RF Discontinued levothyroxine 100 mcg tablet 100 mcg PO DAILY@0600 Discharge Orders: Discharge Order (Routine); Ordered 02/21/25 Ordered By: Que Salazar Diet: Regular diet Activity on Discharge: As tolerated Stand Alone Forms: Patient Portal Discharge page, Community Support Print Language: Guyanese Care Plan Goals: Maintain mood and safe behaviors Take medications as prescribed Continue to pursue sobriety Practice coping skills Continue with outpatient providers and reach out to them as needed Health Concerns: Mood stability and behaviors Sobriety Plan of Treatment: Follow up with your PCP, psychiatric provider and other outpatient providers regarding above concerns Take medications as prescribed Assessment: Risk assessment at time of discharge:? Patient was interviewed prior to discharge and found to be fully oriented and without any SI or HI. Patient has improved insight and judgment and wants to continue treatment. Patient is not in imminent risk of harm to self or others and has a safety plan that includes presenting to the closest ER or calling 911 if feeling unsafe.? Patient has been observed closely by nursing and unit staff throughout admission; patient has not engaged in any behaviors that suggest dangerousness to self or others and has demonstrated appropriate behaviors and impulse control Discharge Date/Time: 02/21/25 11:45
== END 2025-02-21 11:45 | disposition home or self-care (01) | DRG 885 ==
LOC: HO.ED 02-17 13:39 → HO.PM5 02-18 15:22
PROVIDERS: Admitting Provider Psychiatry & Neurology Psychiatry; Emergency Provider Emergency Medicine Emergency Medical Services; Visit Provider Psychiatry & Neurology Psychiatry
DX: F31.9 Bipolar disorder, unspecified (principal); R45.851 Suicidal ideations; F14.10 Cocaine abuse, uncomplicated; K59.00 Constipation, unspecified; F43.10 Post-traumatic stress disorder, unspecified; Z79.890 Hormone replacement therapy; Z79.899 Other long term (current) drug therapy
CPT/HCPCS: 36415; 71045; 80053; 80061; 80143; 80178; 80179; 80307; 82550; 82803; 82947; 83036; 83735; 84439; 84443; 84484; 85025; 93005; 99285; J3480; S9485

== ENCOUNTER → 2025-02-16 15:25 | Outpatient (BNV) | payer MEDICARE, MEDICAID, SELFPAY | PROVIDERS: Emergency Provider Emergency Medicine Emergency Medical Services; Visit Provider Internal Medicine Cardiovascular Disease | DX: R94.31 Abnormal electrocardiogram [ECG] [EKG] (principal); T40.5X1A Poisoning by cocaine, accidental (unintentional), initial encounter; R00.1 Bradycardia, unspecified | CPT/HCPCS: 93010 ==

== ENCOUNTER → 2025-02-16 20:54 | Outpatient (BNV) | payer MEDICARE, MEDICAID, SELFPAY | PROVIDERS: Emergency Provider Emergency Medicine Emergency Medical Services; Visit Provider Family Medicine | DX: R41.0 Disorientation, unspecified (principal) | CPT/HCPCS: 71045 ==

== ENCOUNTER → 2025-02-18 14:51 | Outpatient (BNV) | payer MEDICARE, MEDICAID, SELFPAY | PROVIDERS: Admitting Provider Psychiatry & Neurology Psychiatry; Emergency Provider Emergency Medicine Emergency Medical Services; Visit Provider Clinical Nurse Specialist Psychiatric/Mental Health, Adult | DX: F31.9 Bipolar disorder, unspecified (principal); F14.10 Cocaine abuse, uncomplicated; F43.10 Post-traumatic stress disorder, unspecified | CPT/HCPCS: 90792 ==